=== PATIENT | male | born 1975 | race Caucasian/White ===

== ENCOUNTER → 2021-02-15 12:42 | Outpatient (CLI) | payer OTHER, SELFPAY ==
[2021-01-24 15:51] VITALS: BMI 37.4
== END ==
PROVIDERS: Referring Provider Nurse Practitioner Acute Care; Visit Provider Nurse Practitioner Acute Care
DX: G47.33 Obstructive sleep apnea (adult) (pediatric) (principal)
CPT/HCPCS: 95806